=== PATIENT | male | born 1990 | race African-American/Black ===

== ENCOUNTER 2021-09-19 08:02 | Emergency (ER) | payer OTHER, SELFPAY ==
[2021-09-19 08:14] VITALS: BP 145/83; PULSE 80; RESP 16; TEMP 36.9; O2SAT 98
--- NOTE | 2021-09-19 08:16 | ED.MALEGU ---
HPI - Male Genitourinary General Chief complaint: Urogenital-Male Stated complaint: groin pain Time Seen by Provider: 09/19/21 08:16 Source: patient Mode of arrival: ambulatory Limitations: no limitations History of Present Illness HPI Narrative: 31 yo M presents with c/o pain to vein on penis for 3 to 4 days. Last night pain worse and could not sleep. Reports a vein is swollen . No urinary complaints. Denies injury. All systems reviewed and negative except as noted above. Related Data Home Medications Medication Instructions Recorded Confirmed chlorhexidine gluconate 0.12 applic PO DAILY 09/19/21 09/19/21 ferrous sulfate 325 mg PO DAILY 09/19/21 09/19/21 valsartan-hydrochlorothiazide 1 tablet PO DAILY 09/19/21 09/19/21 Allergies Allergy/AdvReac Type Severity Reaction Status Date / Time peanut Allergy Mild Unknown Verified 09/19/21 08:16 codeine AdvReac Intermediate Nausea and Verified 09/19/21 08:16 Vomiting Grass Allergy Mild Unknown Uncoded 09/19/21 08:16 Review of Systems Review of Systems: CONSTITUTIONAL: Denies fever, chills, or sweats. EYES: Denies visual changes, redness, or discharge. ENT: Denies rhinorrhea, congestion, sore throat, or otalgia. CARDIOVASCULAR: Denies chest pain, palpitations, or edema. RESPIRATORY: Denies cough or dyspnea. GASTROINTESTINAL: Denies abdominal pain, nausea, vomiting, or diarrhea. GENITOURINARY: Denies dysuria or hematuria. Reports pain to penis. SKIN: Denies rash or itching. MUSCULOSKELETAL: Denies back pain, joint pain, or myalgia. NEUROLOGIC: Denies headache, numbness, or weakness. PSYCHIATRIC: Denies anxiety or depression. All other systems reviewed are negative, except as documented in HPI. PMFSH Past Medical History Medical History (Updated 09/19/21 @ 08:35 by Joceline Mancia NP) No known health problems Social History Social History Gender identity (if verbalized by the patient): Male Comments At time of signature, agree with nursing past medical, surgical, social and family history. There is no relevant family history pertinent to the presenting complaint. Exam Narrative: GENERAL: This is a well-nourished, well-developed patient, in no apparent distress. HEAD: normocephalic, atraumatic. EYES: PERRL. Sclera clear/white. Vision is grossly intact. EARS: External ears normal, auditory canals clear and without drainage, TMs normal without perforation. Hearing grossly intact. NOSE: External nose normal with no obvious nasal discharge, nares without redness, no rhinorrhea. THROAT: Mucous membranes moist, posterior pharynx clear. NECK: Neck supple, non-tender without lymphadenopathy, masses or thyromegaly. CARDIOVASCULAR: Regular rate and rhythm without murmurs, gallops, or rubs. RESPIRATORY: Clear to auscultation. Breath sounds equal bilaterally. No wheezes, rales, or rhonchi. GASTROINTESTINAL: Abdomen soft, non-tender, nondistended. Bowel sounds are active. No hepato-splenomegaly, or palpable masses. No guarding. : swelling tenderness to dorsal vein, there is a swollen lump noted. pain extends to suprapubic area. SKIN: warm, Dry, intact with no suspicious lesions or rash, good texture and turgor. NEURO: awake, alert, and oriented to person, place and time. There were no obvious focal neurologic abnormalities. EXTREMITIES: No joint tenderness, effusion, or edema noted. No calf tenderness. Negative Homans sign bilaterally. BACK: Nontender without deformity. No CVA tenderness. Course Course Level of Care: Express Care Visit Vital Signs Vital signs: Vital Signs Temperature 36.9 C 09/19/21 08:14 Pulse Rate 80 09/19/21 08:14 Respiratory Rate 16 09/19/21 08:14 Blood Pressure 145/83 H 09/19/21 08:14 Pulse Oximetry 98 09/19/21 08:14 Temperature 36.9 C 09/19/21 08:14 Pulse Rate 80 09/19/21 08:14 Respiratory Rate 16 09/19/21 08:14 Blood Pressure 145/83 H 09/19/21 08:14
== END 2021-09-19 08:35 | disposition short-term general hospital (02) ==
PROVIDERS: Emergency Provider Nurse Practitioner Family
DX: N48.89 Other specified disorders of penis (principal); E78.00 Pure hypercholesterolemia, unspecified; I10 Essential (primary) hypertension
CPT/HCPCS: 81003; 99212; G0463

== ENCOUNTER 2021-09-19 08:52 | Emergency (ER) | payer OTHER, SELFPAY ==
--- NOTE | ~2021-09-19 | US_ITS ---
EXAMINATION: US scrotum doppler EXAM DATE: 09/19/2021 10:21 INDICATION: Dilated penile dorsal vein, r/o thrombosis . TECHNIQUE: Multiple grayscale and Doppler images of the testicles and scrotum were obtained bilateral ly. There is no prior study for comparison. FINDINGS: Scanning in the area of concern, region of reportedly dilated veins in the infrapubic and d orsal aspect of the penis demonstrates dilated serpiginous thrombosed veins. Superficial thrombophleb itis. Right testicle measures 4.2 x 2.0 x 4.0 cm and is morphologically normal. Low resistance Doppler catracho w confirmed. The epididymis is unremarkable. There is no hydrocele or sizable varicocele. Left testicle measures 4.3 x 2.2 x 2.8 cm and is morphologically normal. Low resistance Doppler flow confirmed. The epididymis is unremarkable. There is no hydrocele or sizable varicocele. IMPRESSION: 1. Dorsal vein of penis superficial thrombophlebitis. 2. Unremarkable testicles. I discussed superficial thrombophlebitis with Layne Griffith PA-C at 09/19/2021 10:13 CORRECTIONAL MANAGER. Reviewed, dictated and finalized at location A. ECTIONAL MANAGER
[2021-09-19 08:54] VITALS: BP 164/89; PULSE 75; RESP 18; TEMP 36.9; O2SAT 99
[2021-09-19 09:37] VITALS: BP 159/84; PULSE 85; RESP 14; O2SAT 100
--- NOTE | 2021-09-19 09:37 | ED.MALEGU ---
HPI - Male Genitourinary General Chief complaint: Urogenital-Male Stated complaint: Groin pain Time Seen by Provider: 09/19/21 09:22 Source: patient Mode of arrival: ambulatory Limitations: no limitations History of Present Illness HPI Narrative: Patient is a 31-year-old male who presents to the ED from urgent care with complaints of painful vein to his penis X 4 days. Patient reports he has always had a prominent vein to the dorsal aspect of his penile shaft, but it became painful and raised this past Friday. He denies any trauma to the area. He denies any priapism. He is not sexually active and denies any concern for STIs. He reports the pain radiates into his suprapubic region, mostly on his left side. He denies any pain or swelling in his testicles, penile discharge, dysuria, hematuria, genital lesions, abdominal pain, nausea, vomiting, fever, chills. Related Data Home Medications Medication Instructions Recorded Confirmed chlorhexidine gluconate 0.12 applic PO DAILY 09/19/21 09/19/21 ferrous sulfate 325 mg PO DAILY 09/19/21 09/19/21 valsartan-hydrochlorothiazide 1 tablet PO DAILY 09/19/21 09/19/21 Allergies Allergy/AdvReac Type Severity Reaction Status Date / Time peanut Allergy Mild Unknown Verified 09/19/21 09:33 codeine AdvReac Intermediate Nausea and Verified 09/19/21 09:33 Vomiting Grass Allergy Mild Unknown Uncoded 09/19/21 09:33 Review of Systems Review of Systems: CONSTITUTIONAL: Denies fever, chills, or sweats. GASTROINTESTINAL: Reports L suprapubic pain. Denies abdominal pain, nausea, vomiting, or diarrhea. GENITOURINARY: Reports painful dilated pain to dorsal aspect of penis. Denies dysuria, hematuria, penile discharge, genital lesions, testicular pain/swelling. SKIN: Denies rash or itching. MUSCULOSKELETAL: Denies back pain, joint pain, or myalgia. NEUROLOGIC: Denies headache, numbness, or weakness. All systems reviewed & are unremarkable except as noted in HPI and below PMFSH Past Medical History Medical History (Updated 09/19/21 @ 11:00 by Layne Griffith PA-C) Hypertension Iron deficiency anemia No known health problems Surgical History Surgical History (Updated 09/19/21 @ 09:42 by Layne Griffith PA-C) No pertinent past surgical history Social History Social History (Updated 09/19/21 @ 09:42 by Layne Griffith PA-C) Substance use: current Substance use type: marijuana Gender identity (if verbalized by the patient): Male Exam Narrative: GENERAL: Well appearing, obese, non-toxic, in no acute distress. HEAD: Normocephalic, atraumatic. NECK: Supple. No adenopathy, no masses. RESPIRATORY: Airway patent, respirations nonlabored. Clear to auscultation bilaterally, no rales, rhonchi, wheezing. CARDIOVASCULAR: Regular rate and rhythm without murmurs, rubs, or gallops. Peripheral pulses 2+ and equal bilaterally. ABDOMINAL: Soft, nontender, nondistended, no hepatosplenomegaly. Normoactive BS. : Circumcised male with dilated tortuous dorsal vein to shaft of penis. Swelling around dorsal vein and tenderness with palpation of the vein. No erection or priapism. No penile discharge. No genital lesions. No erythema to penile shaft. No swelling or tenderness to palpation of testicles bilaterally. MUSCULOSKELETAL: Moves all extremities. Strength/ROM intact without gross deformities or TTP. No edema. SKIN: Warm, dry, normal color. No rashes. NEURO: A&O X3. Speech clear. Cranial nerves II-XII grossly intact. Steady gait. No ataxic movements. PSYCHIATRIC: Appropriate mood and affect. Normal interaction. Course Consultations Consultation #1: Discussed with Dr. Singh, Urology patient presentation and workup. Agrees with discharge at this time, hot compresses, Ibuprofen, with follow-up in the office as an outpatient. Date: 09/19/21 Time: 10:52 Vital Signs Vital signs: Vital Signs Temperature 98.4 F 09/19/21 08:54 Pulse Rate 75 09/19/21 08:54 Respiratory Rate 18 09/19/21 0
[2021-09-19 10:00] LABS: Add Urine Microscopic? YES; Appearance Urine Clear (Clear); Bilirubin Urine Negative (Negative); Blood Urine Negative (Negative); Color Urine Yellow (Yellow); Glucose Urine UA Negative (Negative); Ketones Urine Negative (Negative); Leukocyte Esterase Ur Negative LEU/UL (Negative); Mucus Urine Rare /lpf; Nitrate Urine Negative (Negative); Protein Urine Negative (Negative); RBC Urine 0-2 /hpf (0-2); Specific Grav Ur 1.023 (1.001-1.035); WBC Urine 0-3 /hpf
== END 2021-09-19 11:15 | disposition home or self-care (01) ==
PROVIDERS: Physician Assistant; Emergency Provider Emergency Medicine
DX: I80.8 Phlebitis and thrombophlebitis of other sites (principal); I10 Essential (primary) hypertension
CPT/HCPCS: 76870; 81001; 93976; 99284

== ENCOUNTER 2022-01-20 16:31 | Inpatient (IN) | payer OTHER, SELFPAY ==
--- NOTE | ~2022-01-20 | CT_ITS ---
EXAMINATION: CT abdomen pelvis wo con DATE: 01/24/2022 13:26 INDICATION: Abdominal pain TECHNIQUE: Computed tomography (CT) of the abdomen and pelvis was performed without intravenous contr ast. Automated exposure control and iterative reconstruction technique were employed. Exam dose: 160 6.99 mGy-cm total exam DLP. COMPARISON: 01/20/2022 CT abdomen pelvis FINDINGS: The lung bases are clear. Normal heart size. No pericardial or pleural effusion. The liver, gallbladder, bile ducts, pancreas, pancreatic duct and spleen are unremarkable. Normal mor phology of the adrenal glands. No renal mass lesion or urinary tract calculus or hydroureteronephrosis. The urinary bladder wall dain ears mildly prominent, possibly due in part due to surrounding very prominent inflammation/soft tissu e infiltration of the pericolic fat and multiple locules of free air associated with sigmoid colon di verticulitis. There is prominent circumferential thickening of the sigmoid colon wall. No kareem absce ss cavity is identified. There is soft tissue thickening of the anterior pararenal fascia and lateroc onal fascia bilaterally. Diverticulosis of the sigmoid colon. No bowel obstruction is detected. Approximately 2.3 x 2.5 cm fat-containing umbilical hernia. No suspicious osteolytic or osteosclerotic lesions. IMPRESSION: Severe inflammation around the sigmoid colon likely secondary to acute sigmoid diverticu litis, with multiple locules of free air, prominent thickening of the anterior pararenal and lateroco nal fascia bilaterally. No drainable abscess is identified. Reviewed, dictated and finalized at Location [facility]. Reviewed, dictated and finalized at location A. IMPRESSION: Severe inflammation around the sigmoid colon likely secondary to a cute sigmoid diverticulitis, with multiple locules of free air, prominent thick ening of the anterior pararenal and lateroconal fascia bilaterally. No drainabl e abscess is identified.
--- NOTE | ~2022-01-20 | CT_ITS ---
EXAMINATION: CT abdomen pelvis w con DATE: 01/20/2022 18:26 INDICATION: Constipation for 4 days. Right upper and lower quadrant pain. TECHNIQUE: Computed tomography (CT) of the abdomen and pelvis was performed with 100 cc Omnipaque 300 intravenous contrast. The dose-length product was 1675.08 mGy-cm. Automated exposure control and ite rative reconstruction technique were employed. COMPARISON: CT dated 10/31/2017. FINDINGS: Lung bases are unremarkable. Heart size normal. No significant pleural or pericardial effus ion. Small hiatal hernia. There is abnormal thickening of the colon with prominent inflammatory jara es surrounding the sigmoid colon. There is narrowing of the colon as well. There is a small amount of extraluminal gas adjacent to the colon, images 148-153. No discrete walled off fluid collection to s uggest abscess. The liver, spleen, pancreas, adrenal glands and kidneys are unremarkable. Gallbladder is present. The re is a small fat-containing umbilical hernia. Normal appendix. No significant vascular abnormality. No lymphadenopathy. No acute osseous abnormality. IMPRESSION: 1. Abnormal thickening of the sigmoid colon with focal narrowing and large amount of surrounding phle gmonous change, most likely acute diverticulitis. There is evidence for localized perforation, althou gh no discrete walled off fluid collection is present to suggest abscess. Reviewed, dictated and finalized at location A. IMPRESSION: 1. Abnormal thickening of the sigmoid colon with focal narrowing and large amou nt of surrounding phlegmonous change, most likely acute diverticulitis. There i s evidence for localized perforation, although no discrete walled off fluid col lection is present to suggest abscess.
[2022-01-20 16:33] VITALS: BP 151/90; PULSE 102; RESP 18; TEMP 36.5; O2SAT 99
--- NOTE | 2022-01-20 17:10 | ED.ABDPAIN ---
HPI - Abdominal Pain General Chief Complaint: Abdominal Pain <LESLY Cano Last Filed: 01/20/22 19:17> Stated Complaint: abd pain <LESLY Cano Last Filed: 01/20/22 19:17> Time Seen by Provider: 01/20/22 16:45 <LESLY Cano Last Filed: 01/20/22 19:17> Source: patient <LESLY Cano Last Filed: 01/20/22 19:17> Mode of arrival: ambulatory <LESLY Cano Last Filed: 01/20/22 19:17> Limitations: no limitations <LESLY Cano Last Filed: 01/20/22 19:17> History of Present Illness HPI narrative: Patient is a 31 y/o male who presents to the ED with c/o constipation. Patient reports he is typically regular with his bowel movements, occurring daily, but has not had a bowel movement since . The bowel movement that day was small in volume. No rectal bleeding. He has tried several different home remedies, mag citrate, laxatives, stool softeners, and herbal supplements without relief. He reports having significant diffuse abdominal pain, worst in lower abdomen, associated with constipation. He has had nausea, oliguria, and a decreased appetite, but denies vomiting. No fever, chills, dysuria, hematuria. <LESLY Cano Last Filed: 01/20/22 19:17> Related Data Home Medications: Home Medications Medication Instructions Recorded Confirmed ferrous sulfate 325 mg (65 mg 325 mg PO DAILY 09/19/21 01/20/22 iron) tablet,delayed release valsartan 320 1 tablet PO DAILY 09/19/21 01/20/22 mg-hydrochlorothiazide 25 mg tablet <LESLY Cano Last Filed: 01/20/22 19:17> Allergies/Adverse Reactions: Allergies Allergy/AdvReac Type Severity Reaction Status Date / Time peanut Allergy Mild Unknown Verified 09/19/21 09:33 codeine AdvReac Intermediate Nausea and Verified 09/19/21 09:33 Vomiting Grass Allergy Mild Unknown Uncoded 09/19/21 09:33 <Layne Griffith PA-C - Last Filed: 01/20/22 19:17> Review of Systems Review of Systems: CONSTITUTIONAL: Denies fever, chills, or sweats. CARDIOVASCULAR: Denies chest pain. RESPIRATORY: Denies dyspnea. GASTROINTESTINAL: Reports diffuse ABD pain, constipation, nausea. Denies vomiting, rectal bleeding, or diarrhea. GENITOURINARY: Reports oliguria. Denies dysuria or hematuria. SKIN: Denies rash or itching. MUSCULOSKELETAL: Denies back pain, joint pain, or myalgia. <Layne Griffith PA-C - Last Filed: 01/20/22 19:17> All systems reviewed & are unremarkable except as noted in HPI and below <Layne Griffith PA-C - Last Filed: 01/20/22 19:17> [facility] Past Medical History Medical History: Medical History Hypertension Iron deficiency anemia <Layne Griffith PA-C - Last Filed: 01/20/22 19:17> Surgical History Surgical History: Surgical History History of colonoscopy History of hemorrhoidectomy <Layne Griffith PA-C - Last Filed: 01/20/22 19:17> Family History Family History: Family History Mother Diabetes mellitus Hypertension Kidney disease <LESLY Cano Last Filed: 01/20/22 19:17> Social History Social History: Social History Social History: Surrogate decision maker: Augusta Fernandez, sibling. Code status: Full code. Smoking status: Never smoker Alcohol intake: current Drinks per week: 2 Substance use: current Substance use type: marijuana Other substance usage details: daily Spiritual care concerns: No <LESLY Cano Last Filed: 01/20/22 19:17> Exam Narrative: GENERAL: Well appearing, morbidly obese, non-toxic, in no acute distress. HEAD: Normocephalic, atraumatic. NECK: Supple. No adenopathy, no masses. RESPIRATORY: Airway patent, respirations nonlabored. Clear to auscultation bi
[2022-01-20] MEDS: SODIUM CHLORIDE 0.9% IV 1,000 ML 999 ML IV CONT ×2 (17:14→18:32)
[2022-01-20 17:21] LABS: Basophils Percent Auto 0.3 % (0.2-1.2); Eosinophils Percent Auto 0.1 % (0-4.4); Hematocrit 44.1 % (42.0-52.0); Hemoglobin 12.9 g/dL (14.0-18.0); Immature Granulocyte Absolute 0.04 K/mm3 (0.00-0.031); Immature Granulocyte Percent A 0.3 % (0-0.5); Lymphocytes Absolute Auto 1.17 K/mm3 (0.9-3.2); Lymphocytes Percent Auto 8.3 % (18.3-44.2); Mean Corpuscular HGB Conc 29.3 g/dl (32-36); Mean Corpuscular Volume 75.3 fl (80-100); Monocytes Absolute Auto 1.3 K/mm3 (0.1-0.6); Neutrophils Absolute Auto 11.6 K/mm3 (1.3-6.7); Platelet Count Result 307 k/mm3 (150-375); Red Blood Count 5.86 M/mm3 (4.6-6.20); Red Cell Distribution Width 17.7 % (11.5-14.5); White Blood Count 14.2 K/mm3 (4.5-10.0)
[2022-01-20 17:22] LABS: Appearance Urine Clear (Clear); Bilirubin Urine 1+ (Negative); Color Urine Yellow (Yellow); Glucose Urine UA Negative (Negative); Ketones Urine 3+ mg/dL (Negative); Leukocyte Esterase Ur Negative LEU/UL (Negative); Nitrate Urine Negative (Negative); Protein Urine 1+ mg/dL (Negative); Urobilinogen Urine 0.2 mg/dL (<2.0)
[2022-01-20 17:29] LABS: Alanine Aminotransferase 18 U/L (6-50); Albumin Level 4.5 g/dL (3.5-5.1); Alkaline Phosphatase 75 U/L (38-126); Anion Gap 7 mmol/L (8-16); Aspartate Amino Transferase 24 U/L (17-59); Bilirubin,Total 1.1 mg/dL (0.2-1.3); Blood Urea Nitrogen 8 mg/dL (9-20); Calcium 8.9 mg/dL (8.4-10.2); Carbon Dioxide 27 mmol/L (22-30); Chloride 100 mmol/L (98-107); Estimated CRCL calculation 140 ml/min; Estimated Glomerular Filt Rate > 60; Glucose 104 mg/dL (65-110); Lipase 18 U/L (23-300); Sodium 134 mmol/L (137-145)
[2022-01-20 17:29] LABS: Add Urine Microscopic? YES; Blood Urine Trace-Intact (Negative); Mucus Urine Rare /lpf; Squamous Epithelial Cell Urine Rare /hpf (Few); WBC Urine 0-3 /hpf
[2022-01-20 17:30] VITALS: BP 148/88; PULSE 88; RESP 18; TEMP 36.8; O2SAT 97
[2022-01-20 17:59] LABS: Anisocytosis 2+ (NORMAL); Hypochromasia 1+ (NORMAL); Platelet Estimate Adequate (Adequate)
[2022-01-20 18:30] VITALS: BP 152/90; PULSE 86; RESP 16; TEMP 36.8; O2SAT 98
[2022-01-20] MEDS: ONDANSETRON INJ 4 MG/2 ML VIAL IV PUSH (19:02)
[2022-01-20] MEDS: MORPHINE SULFATE (*CRX) 4 MG/ML INJ IV PUSH (19:02)
--- NOTE | 2022-01-20 19:10 | PM.IMHP ---
H&P: HPI History of Present Illness Date/Time: 01/20/22 19:10 Chief Complaint: Abdominal pain. Narrative: This is a very pleasant 31-year-old male with hypertension and history of GI bleed related to hemorrhoids who presented to the emergency department from home for evaluation of abdominal pain. He was hospitalized at [facility] several months ago with rectal bleeding and colonoscopy at that time reportedly showed evidence of hemorrhoidal bleeding and he had a hemorrhoidectomy done at that time. He has not had any further rectal bleeding since that time though it sounds like he does have intermittent issues with constipation or more so having to strain with bowel movements. His last bowel movement was on and he describes passing small amounts of hard stool. Yesterday at work he developed cramping pain throughout his abdomen and he thought he was probably constipated and he took several home remedies including stool softeners, herbal supplements, and magnesium citrate with no success. In fact his abdominal pain has gotten increasingly worse and he feels bloated though he has not been able to pass much gas. He also reports chills but no fever and nausea but no vomiting. CT of the abdomen and pelvis today showed findings of acute diverticulitis with evidence of localized perforation and a large amount of surrounding phlegmonous change though no fluid collection to suggest abscess. He is being admitted in this setting for IV antibiotics and supportive care. Review of Systems Review of Systems: Twelve systems were reviewed. No fever but he does endorse chills. No cold or flu symptoms. He has had some nausea but no vomiting. He did not eat today but he has been trying to keep down some liquids. No chest pain. He has mild shortness of breath when trying to take a deep breath though that is due to referred pain into his abdomen. No dysuria but he does have some lower abdominal pressure, likely from the diverticulitis. No blood or mucus in the stool. Except as documented, all other systems were reviewed and are negative. [facility] Past Medical History Medical History (Updated 01/20/22 @ 21:21 by Tri Greene PA-C) Hypertension Iron deficiency anemia Surgical History Surgical History (Updated 01/20/22 @ 21:20 by Tri Greene PA-C) History of colonoscopy History of hemorrhoidectomy Family History Family History (Updated 01/20/22 @ 21:20 by Tri Greene PA-C) Mother Diabetes mellitus Other Hypertension Social History Social History (Updated 01/20/22 @ 21:21 by Tri Greene PA-C) Social History: Surrogate decision maker: Augusta Fernandez, sibling. Code status: Full code. Smoking status: Never smoker Alcohol intake: current Drinks per week: 2 Substance use: current Substance use type: marijuana Other substance usage details: daily Spiritual care concerns: No Meds Home Medications and Allergies Home Medications Medication Instructions Recorded Confirmed Type ferrous sulfate 325 mg (65 mg 325 mg PO DAILY 09/19/21 01/20/22 History iron) tablet,delayed release valsartan 320 1 tablet PO DAILY 09/19/21 01/20/22 History mg-hydrochlorothiazide 25 mg tablet Allergies Allergy/AdvReac Type Severity Reaction Status Date / Time peanut Allergy Mild Unknown Verified 09/19/21 09:33 codeine AdvReac Intermediate Nausea and Verified 09/19/21 09:33 Vomiting Grass Allergy Mild Unknown Uncoded 09/19/21 09:33 Vital Signs Vital Signs - 24 hr 01/20/22 16:33 Temperature 97.7 F Pulse Rate 102 H Respiratory Rate 18 Blood Pressure 151/90 H Pulse Oximetry 99 Exam Narrative: General: Mildly ill-appearing male sitting up in bed. Weight: 172.27 kg. BMI: 50.1. HEENT: PERRL, EOMI. Conjunctivae anicteric. Tacky mucous membranes. Neck: Supple. Respiratory: Lungs are clear to auscultation bilaterally. Cardiovascular: Regular rate and rhythm with S1-S2. G
[2022-01-20 19:30] VITALS: BP 152/88; PULSE 90; RESP 16; TEMP 36.8; O2SAT 97
[2022-01-20] MEDS: SODIUM CHLORIDE 0.9% IV 1,000 ML 125 ML IV CONT (20:19)
--- NOTE | 2022-01-20 21:05 | ADMGEN ---
This patient, Kenny Fernandez II, was admitted to 2 Medical Room 240-. Patient/family oriented to hospital policies and general routines including ID bracelet, bed and alarms, visiting hours, pain management, procedures, bathroom and other care routines, personal items, smoking policy, room service/diet, and visiting hours. Information on how to activate the Rapid Response Team has been discussed. Patient/Family are encouraged to report perceived risks to care and to ask questions if they do not understand what they are told or what they should do.
[2022-01-20] MEDS: HYDROmorphone HCL INJ (*CRX) 1 MG/ML SYR IV PUSH (21:09)
[2022-01-20 22:00] VITALS: BP 122/64; PULSE 106; RESP 20; TEMP 37.6; O2SAT 99
[2022-01-20 23:04] VITALS: BMI 50.9
[2022-01-21] MEDS: HYDROmorphone HCL INJ (*CRX) 1 MG/ML SYR IV PUSH ×5 (01:09→20:24)
[2022-01-21] MEDS: SODIUM CHLORIDE 0.9% IV 1,000 ML 125 ML IV CONT ×3 (04:19→23:03)
[2022-01-21 06:00] VITALS: BP 129/69; PULSE 116; RESP 20; TEMP 36.8; O2SAT 98
[2022-01-21 06:06] LABS: Hematocrit 43.2 % (42.0-52.0); Hemoglobin 12.6 g/dL (14.0-18.0); Mean Corpuscular HGB Conc 29.2 g/dl (32-36); Mean Corpuscular Hemoglobin 22.1 pg (26-34); Mean Corpuscular Volume 75.8 fl (80-100); Mean Platelet Volume 9.5 fl (7.4-10.4); Platelet Count Result 284 k/mm3 (150-375); Red Cell Distribution Width 17.9 % (11.5-14.5); White Blood Count 17.2 K/mm3 (4.5-10.0)
[2022-01-21 06:18] LABS: Anion Gap 7 mmol/L (8-16); Blood Urea Nitrogen 6 mg/dL (9-20); Calcium 8.3 mg/dL (8.4-10.2); Carbon Dioxide 24 mmol/L (22-30); Chloride 104 mmol/L (98-107); Estimated CRCL calculation 151 ml/min; Estimated Glomerular Filt Rate > 60; Glucose 117 mg/dL (65-110); Potassium 3.8 mmol/L (3.4-5.0); Sodium 135 mmol/L (137-145)
--- NOTE | 2022-01-21 09:40 | PM.CNGS ---
Assessment and Plan Assessment and plan (1) Diverticulitis of intestine with perforation without abscess or bleeding: Qualifiers: Diverticulitis site: large intestine Qualified Code(s): K57.20 - Diverticulitis of large intestine with perforation and abscess without bleeding Code(s): K57.80 - Diverticulitis of intestine, part unspecified, with perforation and abscess without bleeding Status: Acute Assessment and Plan: CT evidence of acute sigmoid diverticulitis with localized perforation. Continue with broad-spectrum IV antibiotics, IV fluids, and analgesics as needed. Will allow clear liquids today. Will add IV Ibuprofen scheduled to help with pain control. Repeat labs tomorrow. Discussed with the patient that typically this resolves with IV antibiotics and conservative treatment without requiring surgery in the acute setting, but there is a possibility of requiring surgery if not progressing as expected with the current treatment. (2) Hypertension: Code(s): I10 - Essential (primary) hypertension Status: Acute (3) Iron deficiency anemia: Code(s): D50.9 - Iron deficiency anemia, unspecified Status: Acute (4) Morbid obesity with BMI of 50.0-59.9, adult: Code(s): E66.01 - Morbid (severe) obesity due to excess calories; Z68.43 - Body mass index [BMI] 50.0-59.9, adult Status: Acute Plan I have discussed the patient's case and plan of care with Dr. Johnson. Thank you for allowing us to see the patient in consultation and we will continue to follow along with you. History of Present Illness Consult details Consult date: 01/21/22 Reason for consult: other (Acute sigmoid diverticulitis with perforation) Requesting physician: Tri Greene PA-C Narrative: This is a 31-year-old morbidly obese male with a history of hypertension, who presented to the ED with complaints of lower abdominal pain x 3 days. He reports noticing lower abdominal pain on Friday that progressively worsened over the next 2 days. Initially, he felt this was related to constipation and took laxatives [id number] without relief. He has not had a bowel movement since , which was small. He reports associated nausea. He denies fever, chills, or vomiting. His abdominal pain was unrelenting and brought him into the ED last night. [place] [id number] evidence of acute sigmoid diverticulitis with localized perforation. He has been admitted in the setting. He was started on IV antibiotics. He was made NPO. Our service has been consulted for acute diverticulitis with perforation. He is now seen on the medical floor. He reports his abdominal pain has improved some since admission. He denies any nausea this morning. He reports a history of rectal bleeding and hemorrhoids earlier this year that resulted in a colonoscopy in July and a hemorrhoidectomy in October at [facility]. He reports having some lesions excised during the colonoscopy that were pre-cancerous, but no other findings. Review of Systems Review of Systems: All systems reviewed & are unremarkable except as noted in HPI and below Constitutional: Constitutional: Reports no additional constitutional complaints, Denies chills, Denies fatigue and Denies fever(s) Eyes: Eyes: Reports no additional eye complaints ENT: Reports system reviewed and no additional complaints, except as documented Cardiovascular: Cardiovascular: Reports no additional cardiovascular complaints, Denies chest pain and Denies leg edema Respiratory: Respiratory: Reports no additional respiratory complaints, Denies cough and Denies dyspnea Gastrointestinal: Gastrointestinal: Reports as per HPI, Reports no additional gastrointestinal complaints, Reports abdominal pain, Denies melena, Reports bloating, Denies hematochezia, Reports constipation, Denies diarrhea, Reports nausea and Denies vomiting Genitourinary: Genitourinary:
[2022-01-21] MEDS: IBUPROFEN IV 800 MG/200 ML 800 MG/200 ML BAG 400 MG IVPB ×3 (10:02→23:03)
--- NOTE | 2022-01-21 10:22 | PM.CNGS ---
Assessment and Plan Assessment and plan (1) Diverticulitis of intestine with perforation without abscess or bleeding: Qualifiers: Diverticulitis site: large intestine Qualified Code(s): K57.20 - Diverticulitis of large intestine with perforation and abscess without bleeding Code(s): K57.80 - Diverticulitis of intestine, part unspecified, with perforation and abscess without bleeding Status: Acute Assessment and Plan: No peritoneal signs on exam, continue conservative management with IV antibiotics, will add Toradol for pain control and anti inflammation, start clears (2) Morbid obesity with BMI of 50.0-59.9, adult: Code(s): E66.01 - Morbid (severe) obesity due to excess calories; Z68.43 - Body mass index [BMI] 50.0-59.9, adult Status: Acute Assessment and Plan: dietary and lifestyle modification (3) Hypertension: Code(s): I10 - Essential (primary) hypertension Status: Acute Assessment and Plan: stable management per primary team History of Present Illness Consult details Consult date: 01/21/22 Reason for consult: abdominal pain Requesting physician: Tri Greene PA-C Narrative: The patient is a 31-year-old male presenting with severe lower abdominal pain since late last week. The patient reports the pain is in his lower abdomen and has been progressively worse. The patient reports associated poor appetite, chills, constipation, nausea. The patient reports his last bowel movement was . The patient denies any previous episodes. The patient was admitted several months ago at outside hospital for bleeding hemorrhoids and is status post hemorrhoidectomy. Review of Systems Review of Systems: All systems reviewed & are unremarkable except as noted in HPI and below Constitutional: Constitutional: Reports anorexia, Reports chills, Reports fatigue, Denies fever(s), Reports lethargy, Reports malaise, Reports poor appetite, Reports weakness, Denies weight gain and Denies weight loss Eyes: Eyes: Reports no additional eye complaints ENT: Reports system reviewed and no additional complaints, except as documented Cardiovascular: Cardiovascular: Reports no additional cardiovascular complaints Respiratory: Respiratory: Reports no additional respiratory complaints Gastrointestinal: Gastrointestinal: Reports as per HPI, Reports abdominal pain, Reports bloating, Reports change in bowel habits, Reports constipation, Reports GI cramping, Reports early satiety, Reports nausea and Denies vomiting Genitourinary: Genitourinary: Reports no additional male genitourinary complaints Musculoskeletal: Musculoskeletal: Reports no additional musculoskeletal complaints Integumentary/Breasts: Skin/Breast: Reports system reviewed and no additional complaints, except as docu Neurologic: Reports system reviewed and no additional complaints, except as documented Psychiatric: Psychiatric: Reports no additional psychiatric complaints Endocrine: Endocrine: Reports no additional endocrine complaints Hematologic/Lymphatic: Hematologic/Lymphatic: Reports no additional hematologic/lymphatic complaints Allergic/Immunologic: Allergic/Immunologic: Reports no additional allergic/immunologic complaints [facility] Past Medical History Medical History Hypertension Iron deficiency anemia Surgical History Surgical History (Reviewed 01/21/22 @ 10: by Tesha Johnson MD) History of colonoscopy History of hemorrhoidectomy Family History Family History Mother Diabetes mellitus Hypertension Kidney disease Social History Social History Social History: Surrogate decision maker: Augusta Fernandez, sibling. Code status: Full code. Smoking status: Never smoker Alcohol intake: current Drinks per week: 2 Substance use:
--- NOTE | 2022-01-21 13:25 | PM.IMPN ---
Progress Note: A&P Assessment and Plan (1) Sigmoid diverticulitis: Code(s): K57.32 - Diverticulitis of large intestine without perforation or abscess without bleeding Status: Acute Assessment and Plan: CT shows sigmoid diverticulitis with a focal area of perforation with phlegmonous changes but no discrete abscess. He has been started on Zosyn and will be on bowel rest for now. Antiemetics and analgesics available as needed. Dr. Johnson has been consulted and his input is appreciated. (2) Iron deficiency anemia: Code(s): D50.9 - Iron deficiency anemia, unspecified Status: Acute Assessment and Plan: Hemoglobin and hematocrit are stable. Resume iron once tolerating p.o.. Monitor. (3) Hypertension: Code(s): I10 - Essential (primary) hypertension Status: Acute Assessment and Plan: Blood pressures were reviewed and they have been running a bit high, likely due to pain. Monitor closely. (4) Dehydration: Code(s): E86.0 - Dehydration Status: Acute Assessment and Plan: Continue judicious IV fluid rehydration. Additional Plan HPI This is a very pleasant 31-year-old male with hypertension and history of GI bleed related to hemorrhoids who presented to the emergency department from home for evaluation of abdominal pain. He was hospitalized at [facility] several months ago with rectal bleeding and colonoscopy at that time reportedly showed evidence of hemorrhoidal bleeding and he had a hemorrhoidectomy done at that time. He has not had any further rectal bleeding since that time though it sounds like he does have intermittent issues with constipation or more so having to strain with bowel movements. His last bowel movement was on and he describes passing small amounts of hard stool. Yesterday at work he developed cramping pain throughout his abdomen and he thought he was probably constipated and he took several home remedies including stool softeners, herbal supplements, and magnesium citrate with no success. In fact his abdominal pain has gotten increasingly worse and he feels bloated though he has not been able to pass much gas. He also reports chills but no fever and nausea but no vomiting. CT of the abdomen and pelvis today showed findings of acute diverticulitis with evidence of localized perforation and a large amount of surrounding phlegmonous change though no fluid collection to suggest abscess. He is being admitted in this setting for IV antibiotics and supportive care. 01/21/2022 interval history: patient continue to complain of lower abdominal pain, not passing any and no BM, patient was seen by surgery service there is no peritoneal sign recommended conservative management with bowel rest, IV antibiotic and pain management, will continue to monitor and further recommendation to follow. Subjective Date/time seen: 01/21/22 13:25 Narrative: HPI This is a very pleasant 31-year-old male with hypertension and history of GI bleed related to hemorrhoids who presented to the emergency department from home for evaluation of abdominal pain. He was hospitalized at [facility] several months ago with rectal bleeding and colonoscopy at that time reportedly showed evidence of hemorrhoidal bleeding and he had a hemorrhoidectomy done at that time. He has not had any further rectal bleeding since that time though it sounds like he does have intermittent issues with constipation or more so having to strain with bowel movements. His last bowel movement was on and he describes passing small amounts of hard stool. Yesterday at work he developed cramping pain throughout his abdomen and he thought he was probably constipated and he took several home remedies including stool softeners, herbal supplements, and magnesium citrate with no success. In fact his abdominal pain has gotten increasingly worse and he feels bloated though he has not been able to pass much gas.
[2022-01-21 14:00] VITALS: BP 120/82; PULSE 96; RESP 20; TEMP 36.4; O2SAT 100
[2022-01-21 22:00] VITALS: BP 117/52; PULSE 101; RESP 21; TEMP 36.3; O2SAT 100
[2022-01-22] MEDS: IBUPROFEN IV 800 MG/200 ML 800 MG/200 ML BAG 400 MG IVPB ×3 (05:01→17:39)
[2022-01-22 06:00] VITALS: BP 133/75; PULSE 94; RESP 20; TEMP 36.4; O2SAT 98
[2022-01-22 06:04] LABS: Hematocrit 39.3 % (42.0-52.0); Hemoglobin 11.6 g/dL (14.0-18.0); Mean Corpuscular HGB Conc 29.5 g/dl (32-36); Mean Corpuscular Hemoglobin 22.3 pg (26-34); Mean Corpuscular Volume 75.6 fl (80-100); Mean Platelet Volume 8.9 fl (7.4-10.4); Platelet Count Result 243 k/mm3 (150-375); Red Cell Distribution Width 16.8 % (11.5-14.5); White Blood Count 13.9 K/mm3 (4.5-10.0)
[2022-01-22 06:20] LABS: Anion Gap 4 mmol/L (8-16); Blood Urea Nitrogen 6 mg/dL (9-20); Carbon Dioxide 27 mmol/L (22-30); Chloride 105 mmol/L (98-107); Estimated CRCL calculation 152 ml/min; Estimated Glomerular Filt Rate > 60; Glucose 104 mg/dL (65-110); Potassium 3.6 mmol/L (3.4-5.0); Sodium 136 mmol/L (137-145)
[2022-01-22] MEDS: hydroCHLOROthiazide 25 MG TABLET PO (08:26)
[2022-01-22] MEDS: VALSARTAN 160 MG TABLET 320 MG PO (08:26)
[2022-01-22] MEDS: FERROUS SULFATE 324 MG TABLET PO (08:26)
[2022-01-22] MEDS: SODIUM CHLORIDE 0.9% IV 1,000 ML 125 ML IV CONT ×2 (08:56→20:20)
[2022-01-22] MEDS: HYDROmorphone HCL INJ (*CRX) 1 MG/ML SYR IV PUSH ×2 (10:34→20:22)
--- NOTE | 2022-01-22 12:58 | PM.IMPN ---
Progress Note: A&P Assessment and Plan (1) Sigmoid diverticulitis: Code(s): K57.32 - Diverticulitis of large intestine without perforation or abscess without bleeding Status: Acute Assessment and Plan: CT shows sigmoid diverticulitis with a focal area of perforation with phlegmonous changes but no discrete abscess. He has been started on Zosyn and will be on bowel rest for now. Antiemetics and analgesics available as needed. Dr. Johnson has been consulted and his input is appreciated. (2) Iron deficiency anemia: Code(s): D50.9 - Iron deficiency anemia, unspecified Status: Acute Assessment and Plan: Hemoglobin and hematocrit are stable. Resume iron once tolerating p.o.. Monitor. (3) Hypertension: Code(s): I10 - Essential (primary) hypertension Status: Acute Assessment and Plan: Blood pressures were reviewed and they have been running a bit high, likely due to pain. Monitor closely. (4) Dehydration: Code(s): E86.0 - Dehydration Status: Acute Assessment and Plan: Continue judicious IV fluid rehydration. Additional Plan HPI This is a very pleasant 31-year-old male with hypertension and history of GI bleed related to hemorrhoids who presented to the emergency department from home for evaluation of abdominal pain. He was hospitalized at [facility] several months ago with rectal bleeding and colonoscopy at that time reportedly showed evidence of hemorrhoidal bleeding and he had a hemorrhoidectomy done at that time. He has not had any further rectal bleeding since that time though it sounds like he does have intermittent issues with constipation or more so having to strain with bowel movements. His last bowel movement was on and he describes passing small amounts of hard stool. Yesterday at work he developed cramping pain throughout his abdomen and he thought he was probably constipated and he took several home remedies including stool softeners, herbal supplements, and magnesium citrate with no success. In fact his abdominal pain has gotten increasingly worse and he feels bloated though he has not been able to pass much gas. He also reports chills but no fever and nausea but no vomiting. CT of the abdomen and pelvis today showed findings of acute diverticulitis with evidence of localized perforation and a large amount of surrounding phlegmonous change though no fluid collection to suggest abscess. He is being admitted in this setting for IV antibiotics and supportive care. 01/21/2022 interval history: patient continue to complain of lower abdominal pain, not passing any and no BM, patient was seen by surgery service there is no peritoneal sign recommended conservative management with bowel rest, IV antibiotic and pain management, will continue to monitor and further recommendation to follow. 01/22/2022 interval history: patient continue to complain of lower abdominal pain however pain is little better today and patient had small BM, on 01/22 patient was seen by surgery service there was no peritoneal sign recommended conservative management with bowel rest, IV antibiotic and pain management, will continue to monitor and further recommendation to follow. Subjective Date/time seen: 01/22/22 12:58 HPI This is a very pleasant 31-year-old male with hypertension and history of GI bleed related to hemorrhoids who presented to the emergency department from home for evaluation of abdominal pain. He was hospitalized at [facility] several months ago with rectal bleeding and colonoscopy at that time reportedly showed evidence of hemorrhoidal bleeding and he had a hemorrhoidectomy done at that time. He has not had any further rectal bleeding since that time though it sounds like he does have intermittent issues with constipation or more so having to strain with bowel movements. His last bowel movement was on and he describes passing small amounts of hard st
--- NOTE | 2022-01-22 13:48 | PM.PNGS ---
Progress Note: A&P Assessment and Plan (1) Diverticulitis of intestine with perforation without abscess or bleeding: Qualifiers: Diverticulitis site: large intestine Qualified Code(s): K57.20 - Diverticulitis of large intestine with perforation and abscess without bleeding Code(s): K57.80 - Diverticulitis of intestine, part unspecified, with perforation and abscess without bleeding Status: Acute Assessment and Plan: Abdominal pain improving, WBC trending down, and he is afebrile. Still very tender on exam and dealing with nausea, will leave on clear liquids for now. Continue IV Zosyn, IV analgesics for pain control. Encouraged ambulating the halls/OOB. Repeat labs tomorrow. (2) Morbid obesity with BMI of 50.0-59.9, adult: Code(s): E66.01 - Morbid (severe) obesity due to excess calories; Z68.43 - Body mass index [BMI] 50.0-59.9, adult Status: Acute Additional Plan I have discussed the patient's case and plan of care with Dr. Johnson. Subjective Subjective Date/Time Seen: 01/22/22 13:48 Patient reports: pain is less (slightly), flatus, bowel movement (this morning), nausea and afebrile Interval history: Patient feels slightly better today and feels his abdominal pain is a little better compared to yesterday. Still having frequent nausea, but no vomiting. No other complaints at this time. Review of Systems Review of Systems: All systems reviewed & are unremarkable except as noted in HPI and below Constitutional: Constitutional: Denies fever(s) Exam Const: General: comfortable and alert Nutritional Appearance: obese morbidly obese Orientation/consciousness: patient oriented x3 GI: Inspection: obesity GI Palp: Yes Soft to palpation, Yes Tenderness to palpation present (GI) (still diffusely tender, worse in the lower abdomen), Yes Guarding due to palpation present (GI) (with palpation of the lower abdomen) and No Rebound tenderness present Auscultation: normal bowel sounds Extrem: General: normal to inspection Psych: Mental Status: mental status grossly normal Objective Data Vital Signs Vital Signs: Vital Signs - 24 hr 01/21/22 14:00 01/21/22 22:00 01/22/22 06:00 Temperature 97.6 F 97.3 F L 97.5 F L Pulse Rate 96 101 H 94 Respiratory Rate 20 21 H 20 Blood Pressure 120/82 117/52 L 133/75 Pulse Oximetry 100 100 98 Oxygen Delivery 01/22/22 07:30 Temperature Pulse Rate Respiratory Rate Blood Pressure Pulse Oximetry Oxygen Delivery Room Air Intake/Output Intake/Output: Intake & Output 01/19/22 01/20/22 01/21/22 01/22/22 23:59 23:59 23:59 23:59 Intake Total 2100 1591 3725 Output Total 1900 900 Balance 2100 0042 7075 Meds/Results Medications: Active Medications Generic Name Dose Route Start Last Admin Trade Name Freq PRN Reason Stop Dose Admin Acetaminophen 1,000 mg 01/21/22 09:42 Acetaminophen 500 Mg Tablet PO Q6H PRN Mild Pain (1-3) or Fever Ferrous Sulfate 324 mg 01/22/22 08:00 01/22/22 08:26 Ferrous Sulfate 324 Mg Tablet PO 324 mg DAILY@0800 SAUL Administration Hydrochlorothiazide 25 mg 01/22/22 09:00 01/22/22 08:26 Hydrochlorothiazide 25 Mg Tablet PO 02/21/22 08:59 25 mg DAILY SAUL Administration Hydromorphone HCl 1 mg 01/20/22 20:51 01/22/22 10:34 Hydromorphone Hcl Inj (*Crx) 1 Mg/Ml Syr IV PUSH 1 mg Q4H PRN Administration Pain Rated 7-10 Hydromorphone HCl 0.5 mg 01/21/22 09:42 Hydromorphone Hcl Inj (*Crx) 1 Mg/Ml Syr IV PUSH Q3H PRN Pain Rated 4-6 Sodium Chloride 1,000 mls @ 125 mls/hr 01/20/22 18:50 01/22/22 08:56 Normal Saline Iv IV CONT 125 mls/hr .Q8H SAUL Administration Piperacillin/Tazobactam/Dextrose 3.375 gm in 50 mls @ 100 mls/hr 01/21/22 00:00 01/22/22 11:49 Zosyn 3.375 Gm/D5w 50ml Pm IVPB Infused Q6H SAUL Infusion Ibuprofen 800 mg in 200 mls @ 400 mls/hr 01/21/22 09:45 01/22/22 11:49 Caldolor 800 Mg/200 Ml IVPB Infus
[2022-01-22 14:00] VITALS: BP 134/78; PULSE 98; RESP 20; TEMP 36.7; O2SAT 100
[2022-01-22 20:00] VITALS: PULSE 98; RESP 20; O2SAT 100
[2022-01-22 22:00] VITALS: BP 144/79; PULSE 96; RESP 21; TEMP 36.3; O2SAT 100
[2022-01-23] MEDS: IBUPROFEN IV 800 MG/200 ML 800 MG/200 ML BAG 400 MG IVPB ×3 (00:12→11:29)
[2022-01-23 04:38] VITALS: BP 130/70; PULSE 83; RESP 20; TEMP 36.3; O2SAT 99
[2022-01-23] MEDS: SODIUM CHLORIDE 0.9% IV 1,000 ML 125 ML IV CONT (05:09)
[2022-01-23 05:42] LABS: Hematocrit 36.6 % (42.0-52.0); Hemoglobin 10.9 g/dL (14.0-18.0); Mean Corpuscular HGB Conc 29.8 g/dl (32-36); Mean Corpuscular Hemoglobin 22.3 pg (26-34); Mean Corpuscular Volume 74.8 fl (80-100); Mean Platelet Volume 9.2 fl (7.4-10.4); Platelet Count Result 268 k/mm3 (150-375); Red Blood Count 4.89 M/mm3 (4.6-6.20); White Blood Count 9.8 K/mm3 (4.5-10.0)
[2022-01-23 05:57] LABS: Anion Gap 5 mmol/L (8-16); Blood Urea Nitrogen 5 mg/dL (9-20); Calcium 8.1 mg/dL (8.4-10.2); Carbon Dioxide 27 mmol/L (22-30); Chloride 104 mmol/L (98-107); Estimated CRCL calculation 169 ml/min; Estimated Glomerular Filt Rate > 60; Glucose 93 mg/dL (65-110); Potassium 3.3 mmol/L (3.4-5.0); Sodium 136 mmol/L (137-145)
[2022-01-23] MEDS: VALSARTAN 160 MG TABLET 320 MG PO (08:26)
[2022-01-23] MEDS: hydroCHLOROthiazide 25 MG TABLET PO (08:26)
[2022-01-23] MEDS: FERROUS SULFATE 324 MG TABLET PO (08:26)
--- NOTE | 2022-01-23 11:45 | PM.IMPN ---
Progress Note: A&P Assessment and Plan (1) Sigmoid diverticulitis: Code(s): K57.32 - Diverticulitis of large intestine without perforation or abscess without bleeding Status: Acute Assessment and Plan: CT shows sigmoid diverticulitis with a focal area of perforation with phlegmonous changes but no discrete abscess. He has been started on Zosyn and will be on bowel rest for now. Antiemetics and analgesics available as needed. Dr. Johnson has been consulted and his input is appreciated. On clear liquid diet which he tolerating well. Will advance to full liquid diet further advancement per General surgery. If able to tolerate diet will change antibiotics to p.o. and discharged home potentially later today or tomorrow if okay with surgery (2) Iron deficiency anemia: Code(s): D50.9 - Iron deficiency anemia, unspecified Status: Acute Assessment and Plan: Hemoglobin and hematocrit are stable. Resume iron once tolerating p.o.. Monitor. (3) Hypertension: Code(s): I10 - Essential (primary) hypertension Status: Acute Assessment and Plan: Blood pressures were reviewed and they have been running a bit high, likely due to pain. Monitor closely. (4) Dehydration: Code(s): E86.0 - Dehydration Status: Acute Assessment and Plan: Continue judicious IV fluid rehydration. Plan hypokalemia replace today Subjective Date/time seen: 01/23/22 11:45 Interval history: HPI This is a very pleasant 31-year-old male with hypertension and history of GI bleed related to hemorrhoids who presented to the emergency department from home for evaluation of abdominal pain. He was hospitalized at [facility] several months ago with rectal bleeding and colonoscopy at that time reportedly showed evidence of hemorrhoidal bleeding and he had a hemorrhoidectomy done at that time. He has not had any further rectal bleeding since that time though it sounds like he does have intermittent issues with constipation or more so having to strain with bowel movements. His last bowel movement was on and he describes passing small amounts of hard stool. Yesterday at work he developed cramping pain throughout his abdomen and he thought he was probably constipated and he took several home remedies including stool softeners, herbal supplements, and magnesium citrate with no success. In fact his abdominal pain has gotten increasingly worse and he feels bloated though he has not been able to pass much gas. He also reports chills but no fever and nausea but no vomiting. CT of the abdomen and pelvis today showed findings of acute diverticulitis with evidence of localized perforation and a large amount of surrounding phlegmonous change though no fluid collection to suggest abscess. He is being admitted in this setting for IV antibiotics and supportive care. 01/21/2022 interval history: patient continue to complain of lower abdominal pain, not passing any and no BM, patient was seen by surgery service there is no peritoneal sign recommended conservative management with bowel rest, IV antibiotic and pain management, will continue to monitor and further recommendation to follow. 01/22/2022 interval history: patient continue to complain of lower abdominal pain however pain is little better today and patient had small BM, on 01/22 patient was seen by surgery service there was no peritoneal sign recommended conservative management with bowel rest, IV antibiotic and pain management, will continue to monitor and further recommendation to follow. 01/23/2022 no overnight events. Remains afebrile. Blood pressure stable. General surgery following. On IV Zosyn. Leukocytosis has resolved. Mild anemia. feeling better. On clear liquid diet. Wants to go home Review of Systems Review of Systems: All systems reviewed & are unremarkable except as noted in HPI and below Exam Narrative: morbidly obese Patient i
[2022-01-23] MEDS: POTASSIUM CHLORIDE INJ 40 MEQ in SODIUM CHLORIDE 0.9% IV 500 ML 130 MEQ IVPB (12:43)
[2022-01-23 14:00] VITALS: BP 131/83; PULSE 92; RESP 20; TEMP 36.9; O2SAT 100
--- NOTE | 2022-01-23 14:57 | PM.PNGS ---
Progress Note: A&P Assessment and Plan (1) Diverticulitis of intestine with perforation without abscess or bleeding: Qualifiers: Diverticulitis site: large intestine Qualified Code(s): K57.20 - Diverticulitis of large intestine with perforation and abscess without bleeding Code(s): K57.80 - Diverticulitis of intestine, part unspecified, with perforation and abscess without bleeding Status: Acute Assessment and Plan: Clinically improving. Continue IV antibiotics. Advance diet as tolerated to low fiber. Will consult a dietitian to discuss low vs high fiber diets. Repeat labs tomorrow. (2) Morbid obesity with BMI of 50.0-59.9, adult: Code(s): E66.01 - Morbid (severe) obesity due to excess calories; Z68.43 - Body mass index [BMI] 50.0-59.9, adult Status: Acute Plan I have discussed the patient's case and plan of care with Dr. Fulton. Subjective Subjective Date/Time Seen: 01/23/22 14:57 Patient reports: no new complaints, feels better, pain is less, tolerating liquids well, flatus, bowel movement and afebrile Interval history: Patient feeling much better today. He is not having any abdominal pain at the time of my exam. He tolerated full liquids for lunch. He had a large BM today. Review of Systems Review of Systems: All systems reviewed & are unremarkable except as noted in HPI and below Exam Const: General: no acute distress and awake Nutritional Appearance: obese morbidly obese Orientation/consciousness: patient oriented x3 GI: Inspection: obesity GI Palp: Yes Soft to palpation, No Tenderness to palpation present (GI), No Guarding due to palpation present (GI) and No Rebound tenderness present Auscultation: normal bowel sounds Extrem: General: normal to inspection and no edema Psych: Insight: Good insight present (Psych) Objective Data Vital Signs Vital Signs: Vital Signs - 24 hr 01/22/22 20:00 01/22/22 22:00 01/23/22 04:38 Temperature 97.3 F L 97.3 F L Pulse Rate 98 96 83 Respiratory Rate 20 21 H 20 Blood Pressure 144/79 H 130/70 Pulse Oximetry 100 100 99 Oxygen Delivery Room Air 01/23/22 08:00 01/23/22 14:00 Temperature 98.4 F Pulse Rate 92 Respiratory Rate 20 Blood Pressure 131/83 Pulse Oximetry 100 Oxygen Delivery Room Air Intake/Output Intake/Output: Intake & Output 01/20/22 01/21/22 01/22/22 01/23/22 23:59 23:59 23:59 23:59 Intake Total 2100 5782 4659 3466 Output Total 1900 2040 1000 Balance 2100 3882 2216 3873 Meds/Results Medications: Active Medications Generic Name Dose Route Start Last Admin Trade Name Freq PRN Reason Stop Dose Admin Acetaminophen 1,000 mg 01/21/22 09:42 Acetaminophen 500 Mg Tablet PO Q6H PRN Mild Pain (1-3) or Fever Ferrous Sulfate 324 mg 01/22/22 08:00 01/23/22 08:26 Ferrous Sulfate 324 Mg Tablet PO 324 mg DAILY@0800 SAUL Administration Hydrochlorothiazide 25 mg 01/22/22 09:00 01/23/22 08:26 Hydrochlorothiazide 25 Mg Tablet PO 02/21/22 08:59 25 mg DAILY SAUL Administration Hydromorphone HCl 0.5 mg 01/21/22 09:42 Hydromorphone Hcl Inj (*Crx) 1 Mg/Ml Syr IV PUSH Q3H PRN Pain Rated 7-10 Piperacillin/Tazobactam/Dextrose 3.375 gm in 50 mls @ 100 mls/hr 01/21/22 00:00 01/23/22 12:35 Zosyn 3.375 Gm/D5w 50ml Pm IVPB Infused Q6H SAUL Infusion Potassium Chloride 40 meq/ 520 mls @ 130 mls/hr 01/23/22 12:00 01/23/22 12:43 Sodium Chloride IVPB 01/23/22 15:59 130 mls/hr ONCE ONE Administration Ibuprofen 800 mg in 200 mls @ 400 mls/hr 01/23/22 13:09 Caldolor 800 Mg/200 Ml IVPB Q6H PRN Pain Rated 4-6 Ondansetron HCl 4 mg 01/20/22 20:52 Ondansetron Inj 4 Mg/2 Ml Vial IV PUSH Q6H PRN Nausea And Vomiting Valsartan 320 mg 01/22/22 09:00 01/23/22 08:26 Valsartan 160 Mg Tablet PO 02/21/22 08:59 320 mg DAILY SAUL Administration Radiology Results: ITS Impressions Abdomen/Pelvis CT
[2022-01-23 19:05] VITALS: BP 147/89; PULSE 91; RESP 18; TEMP 36.6; O2SAT 100
[2022-01-23 20:00] VITALS: PULSE 91; RESP 18; O2SAT 100
[2022-01-23] MEDS: HYDROmorphone HCL INJ (*CRX) 1 MG/ML SYR 0.5 MG IV PUSH (20:28)
[2022-01-24 03:49] VITALS: BP 137/85; PULSE 91; RESP 16; TEMP 37.2; O2SAT 99
[2022-01-24] MEDS: HYDROmorphone HCL INJ (*CRX) 1 MG/ML SYR 0.5 MG IV PUSH ×2 (05:35→21:07)
[2022-01-24 06:46] LABS: Basophils Percent Auto 0.4 % (0.2-1.2); Eosinophils Absolute Auto 0.1 K/mm3 (0-0.3); Eosinophils Percent Auto 1.5 % (0-4.4); Hematocrit 37.8 % (42.0-52.0); Hemoglobin 11.1 g/dL (14.0-18.0); Immature Granulocyte Absolute 0.03 K/mm3 (0.00-0.031); Immature Granulocyte Percent A 0.4 % (0-0.5); Lymphocytes Absolute Auto 1.37 K/mm3 (0.9-3.2); Lymphocytes Percent Auto 16.3 % (18.3-44.2); Mean Corpuscular HGB Conc 29.4 g/dl (32-36); Mean Corpuscular Hemoglobin 21.9 pg (26-34); Mean Corpuscular Volume 74.7 fl (80-100); Mean Platelet Volume 9.2 fl (7.4-10.4); Monocytes Absolute Auto 0.9 K/mm3 (0.1-0.6); Monocytes Percent Auto 10.1 % (2.6-8.5); Neutrophils Percent Auto 71.3 % (45.5-73.1); Platelet Count Result 370 k/mm3 (150-375); Red Blood Count 5.06 M/mm3 (4.6-6.20); Red Cell Distribution Width 17.3 % (11.5-14.5); White Blood Count 8.4 K/mm3 (4.5-10.0)
[2022-01-24 07:09] LABS: Alanine Aminotransferase 16 U/L (6-50); Albumin Level 3.5 g/dL (3.5-5.1); Alkaline Phosphatase 91 U/L (38-126); Anion Gap 7 mmol/L (8-16); Aspartate Amino Transferase 27 U/L (17-59); Bilirubin,Total 0.7 mg/dL (0.2-1.3); Blood Urea Nitrogen 4 mg/dL (9-20); Calcium 8.4 mg/dL (8.4-10.2); Carbon Dioxide 27 mmol/L (22-30); Chloride 101 mmol/L (98-107); Estimated CRCL calculation 152 ml/min; Estimated Glomerular Filt Rate > 60; Glucose 94 mg/dL (65-110); Potassium 3.4 mmol/L (3.4-5.0); Sodium 135 mmol/L (137-145)
[2022-01-24 07:51] LABS: Ovalocytes 1+ (NORMAL); Platelet Estimate Adequate (Adequate)
--- NOTE | 2022-01-24 09:40 | PM.PNGS ---
Progress Note: A&P Assessment and Plan (1) Diverticulitis of intestine with perforation without abscess or bleeding: Qualifiers: Diverticulitis site: large intestine Qualified Code(s): K57.20 - Diverticulitis of large intestine with perforation and abscess without bleeding Code(s): K57.80 - Diverticulitis of intestine, part unspecified, with perforation and abscess without bleeding Status: Acute Assessment and Plan: much improved, exam benign, ADAT, if santiago low fiber diet ok to dc home c po abx, f/u 2 wks (2) Morbid obesity with BMI of 50.0-59.9, adult: Code(s): E66.01 - Morbid (severe) obesity due to excess calories; Z68.43 - Body mass index [BMI] 50.0-59.9, adult Status: Acute Assessment and Plan: lifestyle and dietary modifications Subjective Subjective Date/Time Seen: 01/24/22 09:40 feels much improved, santiago full liquids Review of Systems Review of Systems: All systems reviewed & are unremarkable except as noted in HPI and below Exam Const: General: cooperative, comfortable and no acute distress Resp: Effort & Inspection: normal respiratory effort Auscultation: clear to auscultation bilaterally Cardio: Rate: regular rate Rhythm: regular rhythm GI: Inspection: normal to inspection and non-distended GI Palp: No abdominal tenderness, Yes Soft to palpation, No Tenderness to palpation present (GI), No Guarding due to palpation present (GI) and No Rigid due to palpation Objective Data Vital Signs Vital Signs: Vital Signs - 24 hr 01/23/22 14:00 01/23/22 19:05 01/23/22 20:00 Temperature 36.9 C 36.6 C Pulse Rate 92 91 91 Respiratory Rate 20 18 18 Blood Pressure 131/83 147/89 H Pulse Oximetry 100 100 100 Oxygen Delivery Room Air 01/24/22 03:49 Temperature 37.2 C Pulse Rate 91 Respiratory Rate 16 Blood Pressure 137/85 Pulse Oximetry 99 Oxygen Delivery Intake/Output Intake/Output: Intake & Output 01/21/22 01/22/22 01/23/22 01/24/22 23:59 23:59 23:59 23:59 Intake Total 5391 5403 1958 620 Output Total 1900 2040 1000 Balance 3882 1529 5594 620 Meds/Results Medications: Active Medications Generic Name Dose Route Start Last Admin Trade Name Freq PRN Reason Stop Dose Admin Acetaminophen 1,000 mg 01/21/22 09:42 Acetaminophen 500 Mg Tablet PO Q6H PRN Mild Pain (1-3) or Fever Ferrous Sulfate 324 mg 01/22/22 08:00 01/23/22 08:26 Ferrous Sulfate 324 Mg Tablet PO 324 mg DAILY@0800 SAUL Administration Hydrochlorothiazide 25 mg 01/22/22 09:00 01/23/22 08:26 Hydrochlorothiazide 25 Mg Tablet PO 02/21/22 08:59 25 mg DAILY SAUL Administration Hydromorphone HCl 0.5 mg 01/21/22 09:42 01/24/22 05:35 Hydromorphone Hcl Inj (*Crx) 1 Mg/Ml Syr IV PUSH 0.5 mg Q3H PRN Administration Pain Rated 7-10 Piperacillin/Tazobactam/Dextrose 3.375 gm in 50 mls @ 100 mls/hr 01/21/22 00:00 01/24/22 06:00 Zosyn 3.375 Gm/D5w 50ml Pm IVPB Infused Q6H SAUL Infusion Ibuprofen 800 mg in 200 mls @ 400 mls/hr 01/23/22 13:09 Caldolor 800 Mg/200 Ml IVPB Q6H PRN Pain Rated 4-6 Ondansetron HCl 4 mg 01/20/22 20:52 Ondansetron Inj 4 Mg/2 Ml Vial IV PUSH Q6H PRN Nausea And Vomiting Valsartan 320 mg 01/22/22 09:00 01/23/22 08:26 Valsartan 160 Mg Tablet PO 02/21/22 08:59 320 mg DAILY SAUL Administration Radiology Results: ITS Impressions Abdomen/Pelvis CT 01/20/22 18:33 IMPRESSION: 1. Abnormal thickening of the sigmoid colon with focal narrowing and large amount of surrounding phlegmonous change, most likely acute diverticulitis. There is evidence for localized perforation, although no discrete walled off fluid collection is present to suggest abscess. Labs Labs: Laboratory Results - last 24 hr 01/24/22 01/24/22 05:25 05:25 WBC 8.4 RBC 5.06 Hgb 11.1 L Hct 37.8 L MCV 74.7 L MCH 21.9 L MCHC 29.4 L RDW 17.3 H Plt Count 370 MPV 9
[2022-01-24 09:50] VITALS: O2SAT 98
[2022-01-24] MEDS: VALSARTAN 160 MG TABLET 320 MG PO (09:57)
[2022-01-24] MEDS: FERROUS SULFATE 324 MG TABLET PO (09:57)
[2022-01-24] MEDS: hydroCHLOROthiazide 25 MG TABLET PO (09:57)
[2022-01-24] MEDS: IBUPROFEN IV 800 MG/200 ML 800 MG/200 ML BAG 400 MG IVPB (11:25)
--- NOTE | 2022-01-24 11:55 | PCNSR ---
On 01/24/22, the student, Harjinder Keen, provided care and completed [facility] documentation on this patient. I have reviewed the student's documentation and agree with the findings.
[2022-01-24 14:00] VITALS: BP 141/93; PULSE 76; RESP 16; TEMP 35.8; O2SAT 100
--- NOTE | 2022-01-24 14:08 | PM.IMPN ---
Progress Note: A&P Assessment and Plan (1) Sigmoid diverticulitis: Code(s): K57.32 - Diverticulitis of large intestine without perforation or abscess without bleeding Status: Acute Assessment and Plan: CT shows sigmoid diverticulitis with a focal area of perforation with phlegmonous changes but no discrete abscess. He has been started on Zosyn and will be on bowel rest for now. Antiemetics and analgesics available as needed. Dr. Johnson has been consulted and his input is appreciated. Currently on full liquid diet. 01/24/[address] abdomen with persistent acute diverticulitis noted. Will continue IV antibiotics for further management per General surgery (2) Iron deficiency anemia: Code(s): D50.9 - Iron deficiency anemia, unspecified Status: Acute Assessment and Plan: Hemoglobin and hematocrit are stable. Resume iron once tolerating p.o.. Monitor. (3) Hypertension: Code(s): I10 - Essential (primary) hypertension Status: Acute Assessment and Plan: Blood pressures were reviewed and they have been running a bit high, likely due to pain. Monitor closely. (4) Dehydration: Code(s): E86.0 - Dehydration Status: Acute Assessment and Plan: Continue judicious IV fluid rehydration. Plan hypokalemia replace and monitor Subjective Date/time seen: 01/24/22 14:08 Interval history: HPI This is a very pleasant 31-year-old male with hypertension and history of GI bleed related to hemorrhoids who presented to the emergency department from home for evaluation of abdominal pain. He was hospitalized at [facility] several months ago with rectal bleeding and colonoscopy at that time reportedly showed evidence of hemorrhoidal bleeding and he had a hemorrhoidectomy done at that time. He has not had any further rectal bleeding since that time though it sounds like he does have intermittent issues with constipation or more so having to strain with bowel movements. His last bowel movement was on and he describes passing small amounts of hard stool. Yesterday at work he developed cramping pain throughout his abdomen and he thought he was probably constipated and he took several home remedies including stool softeners, herbal supplements, and magnesium citrate with no success. In fact his abdominal pain has gotten increasingly worse and he feels bloated though he has not been able to pass much gas. He also reports chills but no fever and nausea but no vomiting. CT of the abdomen and pelvis today showed findings of acute diverticulitis with evidence of localized perforation and a large amount of surrounding phlegmonous change though no fluid collection to suggest abscess. He is being admitted in this setting for IV antibiotics and supportive care. 01/21/2022 interval history: patient continue to complain of lower abdominal pain, not passing any and no BM, patient was seen by surgery service there is no peritoneal sign recommended conservative management with bowel rest, IV antibiotic and pain management, will continue to monitor and further recommendation to follow. 01/22/2022 interval history: patient continue to complain of lower abdominal pain however pain is little better today and patient had small BM, on 01/22 patient was seen by surgery service there was no peritoneal sign recommended conservative management with bowel rest, IV antibiotic and pain management, will continue to monitor and further recommendation to follow. 01/23/2022 no overnight events. Remains afebrile. Blood pressure stable. General surgery following. On IV Zosyn. Leukocytosis has resolved. Mild anemia. feeling better. On clear liquid diet. Wants to go home / no overnight events reports that he was doing well this morning but started having increased pain again in the left lower quadrant. Discussed with General surgery. Getting antibiotics IV. Review of Systems Review of [place]
[2022-01-24] MEDS: KETOROLAC 30 MG/ML VIAL (*BKC) IV PUSH (17:01)
[2022-01-24 19:21] VITALS: BP 135/89; PULSE 74; RESP 18; TEMP 36.6; O2SAT 100
[2022-01-24 20:00] VITALS: PULSE 74; RESP 18; O2SAT 100
[2022-01-25] MEDS: KETOROLAC 30 MG/ML VIAL (*BKC) IV PUSH ×3 (00:30→11:56)
[2022-01-25 04:06] VITALS: BP 137/84; PULSE 81; RESP 17; TEMP 36.3; O2SAT 98
[2022-01-25 05:47] LABS: Alanine Aminotransferase 17 U/L (6-50); Albumin Level 3.6 g/dL (3.5-5.1); Alkaline Phosphatase 77 U/L (38-126); Anion Gap 6 mmol/L (8-16); Aspartate Amino Transferase 25 U/L (17-59); Bilirubin,Total 0.7 mg/dL (0.2-1.3); Blood Urea Nitrogen 8 mg/dL (9-20); Calcium 8.7 mg/dL (8.4-10.2); Carbon Dioxide 30 mmol/L (22-30); Chloride 100 mmol/L (98-107); Estimated CRCL calculation 150 ml/min; Estimated Glomerular Filt Rate > 60; Glucose 95 mg/dL (65-110); Magnesium 1.9 mg/dL (1.6-2.3); Potassium 3.4 mmol/L (3.4-5.0); Sodium 136 mmol/L (137-145)
[2022-01-25 05:49] LABS: Basophils Percent Auto 0.4 % (0.2-1.2); Eosinophils Absolute Auto 0.3 K/mm3 (0-0.3); Eosinophils Percent Auto 2.9 % (0-4.4); Hematocrit 38.4 % (42.0-52.0); Hemoglobin 11.3 g/dL (14.0-18.0); Immature Granulocyte Absolute 0.05 K/mm3 (0.00-0.031); Immature Granulocyte Percent A 0.5 % (0-0.5); Lymphocytes Absolute Auto 1.64 K/mm3 (0.9-3.2); Lymphocytes Percent Auto 17.8 % (18.3-44.2); Mean Corpuscular HGB Conc 29.4 g/dl (32-36); Mean Corpuscular Hemoglobin 21.9 pg (26-34); Mean Corpuscular Volume 74.4 fl (80-100); Mean Platelet Volume 8.9 fl (7.4-10.4); Monocytes Absolute Auto 1.2 K/mm3 (0.1-0.6); Monocytes Percent Auto 12.7 % (2.6-8.5); Neutrophils Percent Auto 65.7 % (45.5-73.1); Platelet Count Result 387 k/mm3 (150-375); Red Blood Count 5.16 M/mm3 (4.6-6.20); Red Cell Distribution Width 17.2 % (11.5-14.5); White Blood Count 9.2 K/mm3 (4.5-10.0)
[2022-01-25] MEDS: FERROUS SULFATE 324 MG TABLET PO (08:48)
[2022-01-25] MEDS: VALSARTAN 160 MG TABLET 320 MG PO (08:48)
[2022-01-25] MEDS: hydroCHLOROthiazide 25 MG TABLET PO (08:49)
--- NOTE | 2022-01-25 11:00 | PM.PNGS ---
Progress Note: A&P Assessment and Plan (1) Diverticulitis of intestine with perforation without abscess or bleeding: Qualifiers: Diverticulitis site: large intestine Qualified Code(s): K57.20 - Diverticulitis of large intestine with perforation and abscess without bleeding Code(s): K57.80 - Diverticulitis of intestine, part unspecified, with perforation and abscess without bleeding Status: Acute Assessment and Plan: exam much improved, ADAT, home c po abx, f/u 2 wks (2) Morbid obesity with BMI of 50.0-59.9, adult: Code(s): E66.01 - Morbid (severe) obesity due to excess calories; Z68.43 - Body mass index [BMI] 50.0-59.9, adult Status: Acute Assessment and Plan: dietary and lifestyle modifications Subjective Subjective Date/Time Seen: 01/25/22 11:00 feels good today, reports large BM this am, no further abd pain/pressure Review of Systems Review of Systems: All systems reviewed & are unremarkable except as noted in HPI and below Exam Const: General: cooperative, healthy appearing and comfortable Resp: Auscultation: clear to auscultation bilaterally Cardio: Rate: regular rate Rhythm: regular rhythm GI: Inspection: normal to inspection and non-distended GI Palp: No abdominal tenderness, Yes Soft to palpation, No Tenderness to palpation present (GI), No Guarding due to palpation present (GI) and No Rigid due to palpation Objective Data Vital Signs Vital Signs: Vital Signs - 24 hr 01/24/22 14:00 01/24/22 19:21 01/24/22 20:00 Temperature 35.8 C L 36.6 C Pulse Rate 76 74 74 Respiratory Rate 16 18 18 Blood Pressure 141/93 H 135/89 Pulse Oximetry 100 100 100 Oxygen Delivery Room Air 01/25/22 04:06 01/25/22 08:00 Temperature 36.3 C L Pulse Rate 81 Respiratory Rate 17 Blood Pressure 137/84 Pulse Oximetry 98 Oxygen Delivery Room Air Intake/Output Intake/Output: Intake & Output 01/22/22 01/23/22 01/24/22 01/25/22 23:59 23:59 23:59 23:59 Intake Total 5545 7906 1360 540 Output Total 2040 1000 Balance 2619 2506 1360 540 Meds/Results Medications: Active Medications Generic Name Dose Route Start Last Admin Trade Name Freq PRN Reason Stop Dose Admin Acetaminophen 1,000 mg 01/21/22 09:42 Acetaminophen 500 Mg Tablet PO Q6H PRN Mild Pain (1-3) or Fever Ferrous Sulfate 324 mg 01/22/22 08:00 01/25/22 08:48 Ferrous Sulfate 324 Mg Tablet PO 324 mg DAILY@0800 SAUL Administration Hydrochlorothiazide 25 mg 01/22/22 09:00 01/25/22 08:49 Hydrochlorothiazide 25 Mg Tablet PO 02/21/22 08:59 25 mg DAILY SAUL Administration Hydromorphone HCl 0.5 mg 01/21/22 09:42 01/24/22 21:07 Hydromorphone Hcl Inj (*Crx) 1 Mg/Ml Syr IV PUSH 0.5 mg Q3H PRN Administration Pain Rated 7-10 Piperacillin/Tazobactam/Dextrose 3.375 gm in 50 mls @ 100 mls/hr 01/21/22 00:00 01/25/22 06:17 Zosyn 3.375 Gm/D5w 50ml Pm IVPB Infused Q6H SAUL Infusion Ibuprofen 800 mg in 200 mls @ 400 mls/hr 01/23/22 13:09 01/24/22 12:15 Caldolor 800 Mg/200 Ml IVPB Infused Q6H PRN Infusion Pain Rated 4-6 Ketorolac Tromethamine 30 mg 01/24/22 18:00 01/25/22 05:47 Ketorolac 30 Mg/Ml Vial (*Bkc) IV PUSH 30 mg Q6H SAUL Administration Ondansetron HCl 4 mg 01/20/22 20:52 Ondansetron Inj 4 Mg/2 Ml Vial IV PUSH Q6H PRN Nausea And Vomiting Valsartan 320 mg 01/22/22 09:00 01/25/22 08:48 Valsartan 160 Mg Tablet PO 02/21/22 08:59 320 mg DAILY SAUL Administration Radiology Results: ITS Impressions Abdomen/Pelvis CT 01/24/22 13:37 IMPRESSION: Severe inflammation around the sigmoid colon likely secondary to acute sigmoid diverticulitis, with multiple locules of free air, prominent thickening of the anterior pararenal and lateroconal fascia bilaterally. No drainable abscess is identified. Labs Labs: Laboratory Results - last 24 hr 01/25/22 01/25/22 05:02 05:02 WBC
[2022-01-25 11:41] LABS: Burr Cells 1+ (NORMAL); Hypochromasia 1+ (NORMAL); Platelet Estimate Adequate (Adequate); Poikilocytosis 1+ (NORMAL)
[2022-01-25 14:14] VITALS: BP 136/87; PULSE 88; RESP 18; TEMP 36.3; O2SAT 100
--- NOTE | 2022-01-25 15:22 | PM.DS ---
DS: Admitting Diagnosis Discharge Date 01/25/2022 Admitting Diagnosis Abdominal pain DS: Discharge Diagnosis Discharge Diagnosis (1) Sigmoid diverticulitis: Code(s): K57.32 - Diverticulitis of large intestine without perforation or abscess without bleeding Status: Acute Assessment and Plan: CT shows sigmoid diverticulitis with a focal area of perforation with phlegmonous changes but no discrete abscess. He was started on Zosyn. An bowel rested. Analgesic and antiemetics would order. General surgery was consulted. With improvement he was slowly advanced on his diet. He remained afebrile on labs stable. During the course of hospital since she had increased pain he had repeat CT scan done on 01/24/2022 which showed persistent findings of acute diverticulitis. He will be switched to Augmentin for 7 more days at discharge and will follow-up with Dr. Grayson as an outpatient basis. (2) Iron deficiency anemia: Code(s): D50.9 - Iron deficiency anemia, unspecified Status: Acute Assessment and Plan: Hemoglobin and hematocrit are stable. Resume iron once tolerating p.o.. Monitor. (3) Hypertension: Code(s): I10 - Essential (primary) hypertension Status: Acute Assessment and Plan: Blood pressures were reviewed and they have been running a bit high, likely due to pain. Monitor closely. (4) Dehydration: Code(s): E86.0 - Dehydration Status: Acute Assessment and Plan: Continue judicious IV fluid rehydration. Plan hypokalemia replace and monitor DS: Summary Hospital Course Hospital Course: See above Time Spent with Patient Time attestation: Total time spent providing and/or coordinating discharge services: 45 minutes Exam Narrative: morbidly obese in mild distress due to pain Patient is comfortable, NAD HEENT: eyes are clear and none icteric LUNGS: normal respiratory effort ABD: soft ,distended nontender SKIN: nonjaundiced Neuro: grossly intact. alert and oriented 3 DS: Data Data Completed and Pending Labs on day of discharge: Labs from last 24 hours 01/25/22 01/25/22 05:02 05:02 WBC 9.2 RBC 5.16 Hgb 11.3 L Hct 38.4 L MCV 74.4 L MCH 21.9 L MCHC 29.4 L RDW 17.2 H Plt Count 387 H MPV 8.9 Immature Gran % (Auto) 0.5 Neut % (Auto) 65.7 Lymph % (Auto) 17.8 L [place] % (Auto) 12.7 H Eos % (Auto) 2.9 Baso % (Auto) 0.4 Lymph # (Auto) 1.64 [place] # (Auto) 1.2 H Eos # (Auto) 0.3 Baso # (Auto) 0.0 Abs Immat Gran (auto) 0.05 H Absolute Neuts (auto) 6.0 Absolute Nucleated RBC 0.0 Nucleated RBC % 0.0 Platelet Estimate Adequate Hypochromasia 1+ Poikilocytosis 1+ [place] Cells 1+ Sodium 136 L Potassium 3.4 Chloride 100 Carbon Dioxide 30 Anion Gap 6 L BUN 8 L Creatinine 1.00 Estim Creat Clear Calc 150 Estimated GFR > 60 Glucose 95 Calcium 8.7 Magnesium 1.9 Total Bilirubin 0.7 AST 25 ALT 17 Alkaline Phosphatase 77 Total Protein 7.0 Albumin 3.6 Imaging Radiologist's impression: ITS Impressions Abdomen/Pelvis CT 01/20/22 18:33 IMPRESSION: 1. Abnormal thickening of the sigmoid colon with focal narrowing and large amount of surrounding phlegmonous change, most likely acute diverticulitis. There is evidence for localized perforation, although no discrete walled off fluid collection is present to suggest abscess. Abdomen/Pelvis CT 01/24/22 13:37 IMPRESSION: Severe inflammation around the sigmoid colon likely secondary to acute sigmoid diverticulitis, with multiple locules of free air, prominent thickening of the anterior pararenal and lateroconal fascia bilaterally. No drainable abscess is identified. Discharge Plan Discharge Attending physician on discharge: Leo Monte Consulting providers: Tesha Johnson Discharging Clinician: Leo Monte Anticipated Discharge Date/Time:
== END 2022-01-25 16:00 | disposition home or self-care (01) | DRG 392 ==
LOC: ANHED 18:56 → ANH2MED 19:02
PROVIDERS: Nurse Practitioner Family; Physician Assistant; Admitting Provider Chiropractor; Emergency Provider Emergency Medicine; PCP Nurse Practitioner Family; Visit Provider Internal Medicine
DX: K57.20 Diverticulitis of large intestine with perforation and abscess without bleeding (principal); Z68.43 Body mass index [BMI] 50.0-59.9, adult; D50.9 Iron deficiency anemia, unspecified; E86.0 Dehydration; I10 Essential (primary) hypertension; E87.6 Hypokalemia; E66.01 Morbid (severe) obesity due to excess calories
CPT/HCPCS: 36415; 74176; 74177; 80048; 80053; 81001; 83690; 83735; 85025; 85027; 96361; 96365; 96367; 96375; 96376; 99285; A9270; G0378; J1170; J1741; J1885; J2270; J2405; J2543; J3480; J7030; J7040; Q9967

== ENCOUNTER 2023-06-11 16:08 | Emergency (ER) | payer OTHER, SELFPAY ==
--- NOTE | ~2023-06-11 | CT_ITS ---
EXAMINATION: CT soft tissue neck w con DATE: 06/11/2023 18:34 INDICATION: Sore throat, positive strep, right-sided throat swelling TECHNIQUE: Computed tomography (CT) of the neck was performed with 75 mL Omnipaque-350 intravenous co ntrast. Automated exposure control and iterative reconstruction technique were employed. The dose-shruthi gth product was 563.31 mGy-cm. COMPARISON: None FINDINGS: The thyroid gland is unremarkable. The submandibular and parotid glands are symmetric. Enlargement of the uvula, adenoids, and bilateral palatine tonsils, greater on the right. Thin right peritonsilla r fluid collection in the posterior aspect of the right parapharyngeal space, measuring 0.8 x 3.2 cm, exhibiting mild peripheral enhancement. Bilateral anterior cervical chain lymphadenopathy. The supe rior mediastinum is unremarkable. The airway is unremarkable. Parapharyngeal and pre-glottic fat planes are preserved. Medial course of the right internal carotid artery, otherwise normal enhancin g neck arteries. Marked dilation of the right internal jugular vein, with central low density. The o rbits are unremarkable. Visualized sinuses and mastoid air cells are well aerated. Lung apices ar e clear. normal regional bones. IMPRESSION: Enlarged uvula, adenoids, and bilateral palatine tonsils. 0.8 x 3.2 cm right posterior parapharyngeal peritonsillar fluid collection, may represent early absce ss or reactive fluid. The flat morphology of this collection would likely make drainage difficult. Th e position of the collection directly anterior to an aberrant right internal carotid artery increases the risk of hemorrhagic complication. Bilateral anterior cervical chain lymphadenopathy Dilated right internal jugular vein with central low density, may be related to temporary obstruction from contrast injection and a central unopacified contrast column, however thrombus is not excluded. Consider right upper extremity venous ultrasound. Reviewed, dictated and finalized at location K. AL CARE ASSISTANT IMPRESSION: Enlarged uvula, adenoids, and bilateral palatine tonsils. 0.8 x 3.2 cm right posterior parapharyngeal peritonsillar fluid collection, may represent early abscess or reactive fluid. The flat morphology of this collect ion would likely make drainage difficult. The position of the collection direct ly anterior to an aberrant right internal carotid artery increases the risk of hemorrhagic complication. Bilateral anterior cervical chain lymphadenopathy Dilated right internal jugular vein with central low density, may be related to temporary obstruction from contrast injection and a central unopacified contra st column, however thrombus is not excluded. Consider right upper extremity jie ous ultrasound.
--- NOTE | ~2023-06-11 | US_ITS ---
EXAMINATION: US venous doppler UE RT DATE: 06/11/2023 20:01 INDICATION: abnormal finding on CT scan . TECHNIQUE: Grayscale ultrasound images without and with compression and Doppler ultrasound images of the right upper extremity veins were obtained. COMPARISON: CT soft tissue Date. FINDINGS: The visualized portions of the right internal jugular vein, subclavian vein, axillary vein, brachial veins, basilic vein, cephalic vein, radial vein, and ulnar vein are patent. Cervical lymphadenopathy. IMPRESSION: No deep venous thrombosis. The CT findings were likely related to artifact from contrast injection. Reviewed, dictated and finalized at location K. L DISTRIBUTOR
[2023-06-11 16:12] VITALS: BP 162/86; PULSE 86; RESP 17; TEMP 36.5; O2SAT 100
[2023-06-11 16:45] LABS: Strep Group A RT-PCR DETECTED (Negative)
--- NOTE | 2023-06-11 17:49 | ED.GENADULT ---
HPI - General Adult General Chief complaint: Unspecified <LESLY Granado Last Filed: 06/12/23 18:43> Stated complaint: throat swollen <LESLY Granado Last Filed: 06/12/23 18:43> Time Seen by Provider: 06/11/23 17:21 <LESLY Granado Last Filed: 06/12/23 18:43> Source: patient <LESLY Granado Last Filed: 06/12/23 18:43> Mode of arrival: ambulatory <LESLY Granado Last Filed: 06/12/23 18:43> Limitations: no limitations <LESLY Granado Last Filed: 06/12/23 18:43> History of Present Illness HPI narrative: This is a 32 year old male that presents to the ER for sore throat. Ongoing over the last 3 days. Reports some associated rhinorrhea. He has been taking over the counter medications with little relief. Denies fever or cough. <LESLY Granado Last Filed: 06/12/23 18:43> Related Data Home medications: Home Medications Medication Instructions Recorded Confirmed ferrous sulfate 325 mg (65 mg 325 mg PO DAILY 09/19/21 01/20/22 iron) tablet,delayed release valsartan 320 1 tablet PO DAILY 09/19/21 01/20/22 mg-hydrochlorothiazide 25 mg tablet <LESLY Granado Last Filed: 06/12/23 18:43> Allergies/adverse reactions: Allergies Allergy/AdvReac Type Severity Reaction Status Date / Time peanut Allergy Mild Unknown Verified 06/11/23 17:20 codeine AdvReac Intermediate Nausea and Verified 06/11/23 17:20 Vomiting Grass Allergy Mild Unknown Uncoded 09/19/21 09:33 <LESLY Granado Last Filed: 06/12/23 18:43> Review of Systems Review of Systems: CONSTITUTIONAL: Denies fever ENT: Reports rhinorrhea, sore throat RESPIRATORY: Denies cough <LESLY Granado Last Filed: 06/12/23 18:43> All systems reviewed & are unremarkable except as noted in HPI and below <Paola Esparza PA-C - Last Filed: 06/12/23 18:43> PMFSH Past Medical History Medical History: Medical History Hypertension Iron deficiency anemia <Paola Esparza PA-C - Last Filed: 06/12/23 18:43> Surgical History Surgical History: Surgical History History of colonoscopy History of hemorrhoidectomy <Paola Esparza PA-C - Last Filed: 06/12/23 18:43> Family History Family History: Family History Mother Diabetes mellitus Hypertension Kidney disease <Paola Esparza PA-C - Last Filed: 06/12/23 18:43> Social History Social History: Social History Social History: Surrogate decision maker: Augusta Fernandez, sibling. Code status: Full code. Smoking status: Never smoker Alcohol intake: current Drinks per week: 2 Substance use: current Substance use type: marijuana Other substance usage details: daily Spiritual care concerns: No <LESLY Granado Last Filed: 06/12/23 18:43> Exam Narrative: GENERAL: Well-appearing, well-nourished, and in no acute distress. HEAD: Normocephalic, atraumatic. EYES: EOMI. ENT: Nares clear, no rhinorrhea or epistaxis. Mucous membranes moist. Oropharynx with tonsillar hypertrophy (R >L) and exudate. No trismus. Bilateral TMs pearly leon non-bulging NECK: Supple. Tender right anterior cervical adenopathy CHEST: Clear to auscultation. No respiratory distress. No wheezes rales or rhonchi HEART: Regular rate and rhythm. No murmur heard. Normal peripheral pulses. EXTREMITIES: Normal range of motion. No edema. SKIN: Warm, dry, no rash. NEURO: No focal deficits. Alert and oriented x3. PSYCH: Normal mood and affect <Paola Esparza PA-C - Last Filed: 06/12/23 18:43> Course Course Emergency Course: Patient was updated on workup and need for transfer for evaluation by ENT <Paola Esparza PA-C - Last Filed: 06/12/23 18:4
[2023-06-11] MEDS: AMPICILLIN SULB 3 GM/NS 100 ML 3 GM/100 ML VIAL IVPB (18:01)
[2023-06-11 18:04] LABS: Basophils Percent Auto 0.4 % (0.2-1.2); Eosinophils Absolute Auto 0.1 K/mm3 (0-0.3); Eosinophils Percent Auto 0.9 % (0-4.4); Hematocrit 46.1 % (42.0-52.0); Immature Granulocyte Absolute 0.02 K/mm3 (0.00-0.031); Immature Granulocyte Percent A 0.2 % (0-0.5); Lymphocytes Absolute Auto 2.39 K/mm3 (0.9-3.2); Lymphocytes Percent Auto 25.9 % (18.3-44.2); Mean Corpuscular HGB Conc 30.4 g/dl (32-36); Mean Corpuscular Hemoglobin 25.9 pg (26-34); Mean Corpuscular Volume 85.2 fl (80-100); Mean Platelet Volume 9.8 fl (7.4-10.4); Monocytes Absolute Auto 0.9 K/mm3 (0.1-0.6); Monocytes Percent Auto 10.2 % (2.6-8.5); Neutrophils Absolute Auto 5.8 K/mm3 (1.3-6.7); Neutrophils Percent Auto 62.4 % (45.5-73.1); Platelet Count Result 288 k/mm3 (150-375); Red Blood Count 5.41 M/mm3 (4.6-6.20); Red Cell Distribution Width 13.3 % (11.5-14.5); White Blood Count 9.2 K/mm3 (4.5-10.0)
[2023-06-11 18:15] LABS: Anion Gap 10 mmol/L (8-16); Blood Urea Nitrogen 8 mg/dL (9-20); Calcium 9.3 mg/dL (8.4-10.2); Carbon Dioxide 30 mmol/L (22-30); Chloride 99 mmol/L (98-107); Estimated CRCL calculation 143 ml/min; Estimated Glomerular Filt Rate > 60; Glucose 102 mg/dL (65-110); Potassium 3.6 mmol/L (3.4-5.0); Sodium 139 mmol/L (137-145)
[2023-06-11] MEDS: KETOROLAC 15 MG/ML VIAL (*BKC) IV PUSH (20:07)
[2023-06-11 21:58] VITALS: BP 137/96; PULSE 75; RESP 16; O2SAT 97
== END 2023-06-11 22:00 | disposition home or self-care (01) ==
PROVIDERS: Student in an Organized Health Care Education/Training Program; Emergency Provider Physician Assistant; PCP Nurse Practitioner Family
DX: J36 Peritonsillar abscess (principal); I10 Essential (primary) hypertension
CPT/HCPCS: 36415; 70491; 80048; 85025; 87651; 93971; 96365; 96375; 99284; J0295; J1100; J1885; Q9967